=== PATIENT | male | born 1995 | race Caucasian/White ===

== ENCOUNTER 2020-07-02 07:09 | Emergency (ER) | payer OTHER, SELFPAY ==
--- NOTE | ~2020-07-02 | XR_ITS ---
EXAMINATION: XR ankle LT min 3V DATE: 07/02/2020 07:51 INDICATION: Left ankle pain TECHNIQUE: Anteroposterior, lateral, mortise, and additional oblique view of the ankle were obtained. COMPARISON: None. FINDINGS: Subtle heterotopic ossification projects lateral to the calcaneus on the frontal view. Ther e is surrounding soft tissue swelling. There is no fracture, dislocation, or subluxation of the ankle . The bones, soft tissues, and joint spaces are otherwise normal. IMPRESSION: 1. Possible avulsion injury of the lateral foot. Consider dedicated foot radiographs. Reviewed, dictated and finalized at location A. RIALS MANAGER IMPRESSION: 1. Possible avulsion injury of the lateral foot. Consider dedicated foot radiog raphs.
--- NOTE | ~2020-07-02 | XR_ITS ---
EXAMINATION: XR foot LT min 3V EXAM DATE: 07/02/2020 08:23 INDICATION: Initial encounter following injury, with pain of the left foot. TECHNIQUE: Left foot dorsoplantar, lateral and oblique projections obtained and reviewed. Correlation is made to left ankle exam same date. FINDINGS: There are a couple of sliver-like ossifications off of the dorsal lateral aspect of the ca lcaneal beak suspicious for acute closed posttraumatic avulsion fractures. There is overlying soft ti ssue swelling. The metatarsal bones and phalanges are unremarkable. IMPRESSION: Probable calcaneal acute avulsion fractures. Reviewed, dictated and finalized at location B. NG II INSTRUCTOR
[2020-07-02 07:37] VITALS: BP 160/80; PULSE 91; RESP 19; TEMP 36.5; O2SAT 98
--- NOTE | 2020-07-02 08:19 | ED.LOWEXIN ---
HPI - Extremity Injury (Lower) General Chief Complaint: Extremity Injury, Lower Stated Complaint: left ankle injury Time Seen by Provider: 07/02/20 08:19 Source: patient Mode of arrival: ambulatory Limitations: no limitations History of Present Illness HPI Narrative: 25 years old white male rolled his left ankle in A deep hole in the ground last night. Complaining of pain of the left ankle/foot laterally. Denies other injuries. Related Data Home Medications Medication Instructions Recorded Confirmed No Home Medications 07/02/20 07/02/20 Allergies Allergy/AdvReac Type Severity Reaction Status Date / Time No Known Allergies Allergy Verified 07/02/20 07:44 Review of Systems Review of Systems: Narrative: CONSTITUTIONAL: Denies fever, chills, or sweats. EYES: Denies visual changes, redness, or discharge. ENT: Denies rhinorrhea, congestion, sore throat, or otalgia. CARDIOVASCULAR: Denies chest pain, palpitations, or edema. RESPIRATORY: Denies cough or dyspnea. GASTROINTESTINAL: Denies abdominal pain, nausea, vomiting, or diarrhea. GENITOURINARY: Denies dysuria or hematuria. SKIN: Denies rash or itching. MUSCULOSKELETAL: Denies back pain, joint pain, or myalgia. NEUROLOGIC: Denies headache, numbness, or weakness. PSYCHIATRIC: Denies anxiety or depression. PMFSH Social History Social History Gender identity (if verbalized by the patient): Male Exam Narrative: Exam Narrative: General appearance: Well-developed, well-nourished Skin: Normal color Chest and respiratory: Airway patent, no respiratory distress, no accessory muscle use Heart: Regular rate/rhythm Vascular: Normal peripheral pulses, normal capillary refill. Musculoskeletal: Diffuse tenderness at left ankle laterally, left foot laterally, slightly swelling, no deformity. Limited range of motion of the left ankle. 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 X-ray left ankle and foot ordered. Further plan to follow Differential Diagnosis Differential diagnosis: Likely ankle sprain and strain and ankle fracture Imaging Data Radiologist's impression: Impressions Ankle X-Ray 07/02/20 07:53 IMPRESSION: 1. Possible avulsion injury of the lateral foot. Consider dedicated foot radiographs. Foot X-Ray 07/02/20 08:23 IMPRESSION: Probable calcaneal acute avulsion fractures. Critical Care Time Critical Care Time Critical Care Time: Yes Total Critical Care Time: 20 Discharge Plan Discharge Clinical Impression: Closed avulsion fracture of left calcaneus Qualifiers: Encounter type: subsequent encounter Calcaneus location: tuberosity Fracture alignment: nondisplaced Fracture healing: with nonunion Qualified Code(s): S92.035K - Nondisplaced avulsion fracture of tuberosity of left calcaneus, subsequent encounter for fracture with nonunion Patient Dispositi
[2020-07-02 09:22] VITALS: BP 156/78; PULSE 94; RESP 17; O2SAT 99
[2020-07-02] MEDS: HYDROcodone/acetaminophen (*CRX) 5-325 MG TABLET 1 TAB PO (09:31)
[2020-07-02] MEDS: IBUPROFEN 600 MG TABLET PO (09:31)
== END 2020-07-02 10:15 | disposition home or self-care (01) ==
PROVIDERS: Emergency Provider Emergency Medicine
DX: S92.002A Unspecified fracture of left calcaneus, initial encounter for closed fracture (principal); X50.9XXA Other and unspecified overexertion or strenuous movements or postures, initial encounter
CPT/HCPCS: 73610; 73630; 99284; A9270